=== PATIENT | female | born 1960 ===

== ENCOUNTER 2017-07-18 16:02 | Emergency (ER) | payer SELFPAY ==
[2017-07-18 16:05] VITALS: TEMP 97.9; O2SAT 100
[2017-07-18] MEDS ORDERED: Lidocaine 2% Inj (20ml) INFIL ONE (16:25)
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
[2017-07-18 17:33] VITALS: BP 146/92; PULSE 90; RESP 16
== END 2017-07-18 17:38 | disposition home or self-care (01) ==
LOC: C.ER 16:02
DX: S01.412A Laceration without foreign body of left cheek and temporomandibular area, initial encounter (principal); Y08.89XA Assault by other specified means, initial encounter; I10 Essential (primary) hypertension

== ENCOUNTER 2017-07-26 07:29 | Emergency (ER) | payer SELFPAY ==
[2017-07-26 07:35] VITALS: BP 156/105; PULSE 70; RESP 18; TEMP 98; O2SAT 97
[2017-07-26] MEDS ORDERED: Bacitracin 500 Units/gm Oint Foilpak UD TOP ONE (08:05)
--- NOTE | 2017-07-26 08:05 | C.PDOC ---
History Of Present Illness 57 yo female came to ER for suture removal s/p laceration on 07/18/17. Pt presents no complaints. Notes she was applying A&D ointment to wound. Denies redness, discharge or fever. No changes in sensation. Of note, pt admits to not taking her ABHIJIT medication this morning. Denies headache, sob, chest pain, dizziness, or other related symptoms. Time Seen by Provider: 07/26/17 07:35 Chief Complaint (Nursing): Suture/Staple Removal History Per: Patient History/Exam Limitations: no limitations Onset/Duration Of Symptoms: Days Ago Current Symptoms Are (Timing): Better Past Medical History Vital Signs: Last Vital Signs Temp 98 F 07/26/17 07:33 Pulse 70 07/26/17 07:33 Resp 18 07/26/17 07:33 BP 156/105 H 07/26/17 07:33 Pulse Ox 97 07/26/17 08:04 - Medical History PMH: Arthritis, HTN Family History: States: Unknown Family Hx - Social History Hx Tobacco Use: Yes Hx Alcohol Use: Yes Hx Substance Use: No - Immunization History Hx Tetanus Toxoid Vaccination: Yes (2 yrs ago) Review Of Systems Except As Marked, All Systems Reviewed And Found Negative. Physical Exam - Physical Exam Appears: Well, Non-toxic, No Acute Distress Skin: Warm, Dry, Other ((+) (+) healed laceration with sutures intact, min purelent discharge noted from the medial aspect of the wound, no surrounding erythema) Head: Atraumatic, Normacephalic Eye(s): bilateral: Normal Inspection, EOMI Nose: Normal Oral Mucosa: Moist Neck: Normal, Supple Chest: Symmetrical Respiratory: No Accessory Muscle Use Back: Normal Inspection Extremity: Normal ROM Neurological/Psych: Oriented x3, Normal Speech ED Course And Treatment O2 Sat by Pulse Oximetry: 97 Progress Note: Discussed the importance of taking HTN medication and the risks of untreated HTn, pt verbalized understanding. Discussed the signs and symptoms of concern, instructed wound care and follow up with PMD in 1-2 days for repeat BP and wound check. Instructed to return to ER if symptoms persist or worsen. Disposition - Disposition Disposition: HOME/ ROUTINE Disposition Time: 08:02 Condition: STABLE Additional Instructions: Continue to monitor the wound and apply antibiotic ointment on in . Return to ER if symtpoms persist or worsen. Take your blood pressure medication as prescribed and follow up with your primary doctor in 1-2 days for repeat bp check. Prescriptions: Bacitracin OINT 1 applic TP BID #1 tube Cephalexin [cephalexin] 500 mg PO BID 7 Days cap Instructions: Stitches Removal Forms: [employer] (Japanese) - Clinical Impression Clinical Impression: Removal of suture, Hypertension
[2017-07-26] MEDS ORDERED: Bacitracin 500 Units/gm Oint Foilpak UD ONE (08:16)
== END 2017-07-26 08:19 | disposition home or self-care (01) ==
LOC: C.ER 07:29
DX: Z48.02 Encounter for removal of sutures (principal); I10 Essential (primary) hypertension